=== PATIENT | male | born 1965 | race Caucasian/White ===

== ENCOUNTER 2016-10-28 10:45 | Day surgery (SDC) | payer OTHER ==
[~2016-10-28] VITALS: Ht 175.3 cm; Wt 105.0 kg
--- NOTE | 2016-10-28 07:25 | PCM.HPANE ---
Patient Data Surgeon Admitting Provider: Attending Provider:Sachin Strickland MD Primary Care Physician:Mitchel John PA-C Other Provider:[facility] Reason for Visit Rectal Bleed Ht/WT & BMI Body Mass Index Allergies Coded Allergies: Iodinated Contrast Media - Oral and (Verified Allergy, Severe, Hives, 10/27) ALSO HAD TONGUE SWELLING Diabetes History Hx Diabetes?: No Medications Hypertension Medication: No Home Meds Incl Beta Katelyn: No Reported Medications Omeprazole 20 Mg Capsule.dr20 Mg PO prn Ref 0 10/28/16 Loratadine (Claritin)10 Mg [id number] Mg PO DAILY Ref 0 10/27/16 Discontinued Reported Medications Ranitidine 300 Mg [id number] Mg PO DAILY Ref 0 10/27/16 History Hx of Heart Problems?: No Hx of Respiratory Problem?: No Stop/Bang Treated for Sleep Apnea?: Yes Do You Have a CPAP Machine?: Yes Risk Assessment Category Category 1A: Patient has history of documented sleep apnea, and HAS NOT received any narcotic, sedative or anesthesia administration during this stay. Category 1B: Patient has history of documented sleep apnea, and HAS received any narcotic , sedative or anesthesia administration during this stay Category 2: Patient has SUSPECTED Obstructive Sleep Apnea, and HAS received any narcotic , sedative or anesthesia administration during this stay. Category 3: Patient has SUSPECTED Obstructive Sleep Apnea and HAS NOT received narcotic, sedative or anesthesia administration during this stay. Category 4: Outpatient in Procedural Areas with known sleep apnea or who screen positive for High Risk via the STOP/BANG questionnaire. Exam Exam General Appearance: Alert, Oriented X3, Cooperative, No Acute Distress HEENT/AIRWAY: MP 2 Lungs: Normal Air Movement Heart: Exam Unremarkable Plan Impression Patient chart reviewed, patient interviewed and anesthestic plan with risks, benefits, and alternatives discussed, and informed consent obtained. ASA Physical Status: ASA2 Mod Systemic Disease Anesthetic Plan: MAC Bene/Risks/Altern/Consents: Yes HP Complete Prior to Induction: Yes Thierry Jiménez MD Oct 28, 2016 07:25
[~2016-10-28 10:45] MED LIST: LORA10CA PO; Lactated Ringer's 1,000 ML IV ONE; RANI300T4 PO
[2016-10-28] MEDS ORDERED: fentaNYL-PF 50 mCg/mL 2 mL Inj ONE (10:46)
[2016-10-28] MEDS ORDERED: Propofol 10,000 mCg/mL 20 mL Inj ONE (10:46)
[2016-10-28] MEDS ORDERED: OMEP20CA11 PO (11:18)
[2016-10-28 11:19] VITALS: BP 136/79; PULSE 58; RESP 14; O2SAT 98
[2016-10-28 12:10] VITALS: BP 102/64; PULSE 66; RESP 14; O2SAT 95
--- NOTE | 2016-10-28 12:13 | PCM.ANEP2 ---
Post Anesthesia Evaluation ASA/CMS Post Anesthesia VS in Patient's Normal Range?: Yes Resp Stable; Airway Patent?: Yes CV Function & Hydration Stable: Yes Mental Status Recovered?: Yes Pain control Satisfactory?: Yes N/V Control Satisfactory?: Yes Thierry Jiménez MD Oct 28, 2016 12:13
--- NOTE | 2016-10-28 12:13 | PCM.ANEP1 ---
Post Anesthesia Phase 1 PACU Phase 1 Assessment Vital Signs see anesthesia record Vital Signs Date Time Temp Pulse Resp B/P Pulse Ox O2 Delivery O2 Flow Rate FiO2 10/28/16 12:10 66 14 102/64 95 Room Air 10/28/16 11:19 58 14 136/79 98 Room Air Anesthetic Administered: MAC Level of Alertness: Awake, talking ERAZO's with Equal Strength: Yes Pain: No Nausea or Vomiting: No Oxygen Delivery: Room Air Lungs: Normal Air Movement Dermatome Level: Full Sensation Thierry Jiménez MD Oct 28, 2016 12:13
[2016-10-28 12:20] VITALS: BP 108/68; PULSE 67; RESP 16; O2SAT 96
[2016-10-28 12:27] VITALS: BP 114/71; PULSE 62; RESP 16; O2SAT 95
--- NOTE | 2016-10-28 13:46 | ENDO ---
[address] [address] ENDOSCOPY PROCEDURE PATIENT: MALCOLM LAYTON : 1965 MR#: [id number] ADMIT: 10/28/2016 JOB ID: [id number] DATE: 10/28/2016 OPERATION: 1. Esophagogastroduodenoscopy with biopsy. 2. Colonoscopy with biopsy. PREOPERATIVE DIAGNOSES: 1. Left upper quadrant pain. 2. Rectal bleeding. POSTOPERATIVE DIAGNOSES: 1. Mild nonerosive gastritis. 2. Small internal hemorrhoids. 3. Mild sigmoid diverticulosis. 4. Two colon polyps seen in sigmoid measuring 3 mm in size, removed by cold biopsy forceps, status post hemoclip x2 placed in one biopsy site. ANESTHESIA: Monitored anesthesia care. COMPLICATIONS: None. BLOOD LOSS: Minimal. DESCRIPTION OF PROCEDURE: After risks and benefits were explained to the patient, informed consent was obtained. After anesthesia administered, upper endoscope was inserted in mouth intubating to the esophagus, stomach, second portion of duodenum, and the mucosa carefully examined. After the procedure was done, the scope was withdrawn and procedure terminated. Colonoscope was then inserted from rectum to cecum and mucosa carefully examined. Prep of the patient was excellent. After the procedure was done, the scope withdrawn and procedure terminated. FINDINGS: Upon inspection of the esophagus, esophagus was normal without masses, ulcers, or lesions. Z-line located 40 cm from the incisors. Upon entering the stomach, there was mild nonerosive gastritis seen in the stomach. No masses, ulcers, lesions were seen. Retroflexion normal. Duodenal bulb, first, second portion were normal. Biopsies taken of antrum, body of stomach. Upon inspection of the anus, no masses, hemorrhoids, ulcers, or fissures were seen throughout the entire examination. There was mild sigmoid diverticulosis. There were two polyps measuring 3 mm in size, removed in the sigmoid colon by cold biopsy forceps. There was a small amount of bleeding that was seen after one polyp that was removed, and two hemoclips were placed. Retroflexion showed small internal hemorrhoids. IMPRESSION: 1. Mild nonerosive gastritis. 2. Small internal hemorrhoids. 3. Two polyps in the sigmoid colon measuring 3 mm in size, status post biopsy and two hemoclips placed at one polypectomy site. 4. Mild sigmoid diverticulosis. RECOMMENDATIONS: 1. High-fiber diet. 2. Await pathology results. If tubular adenoma, then repeat colonoscopy in five years.
--- NOTE | 2016-10-30 08:53 | PATH ---
SURGICAL PATHOLOGY Attending Physician:Sachin Strickland MD CASE STATUS: Signed Out PATIENT NAME: MALCOLM LAYTON PID: [id number] : 1965 DATE COLLECTED:10/28/2016 20:43 SPECIMEN: 1: Stomach, Antrum, Biopsy 2: Gastric, Biopsy 3: Colon, Biopsy CLINICAL HISTORY: RECTAL BLEEDING, ABDOMINAL PAIN 1). ANTRUM BIOPSY 2). GASTRIC BODY BIOPSY 3). SIGMOID COLON POLYPS X2 FINAL DIAGNOSIS: 1. Gastric Antrum, Biopsy: Normal gastric antrum. Negative for Helicobacter organisms. Negative for intestinal metaplasia. No evidence of malignancy or dysplasia. 2. Gastric Body, Biopsy: Normal gastric corpus. Negative for Helicobacter organisms. Negative for intestinal metaplasia. No evidence of malignancy or dysplasia. 3. Sigmoid Colon Polyps: Hyperplastic polyps (2). ICD10 D12.6 GROSS DESCRIPTION: The specimen is received in three formalin filled containers labeled with the patient's name. 1). The specimen is sublabeled "antrum" and consists of a 0.4 x 0.3 x 0.2 CM portion of tissue which is entirely submitted in cassette 1A. 2). The specimen is sublabeled "gastric body" and consists of 3 portions of tissue which aggregate to 0.4 x 0.3 x 0.2 CM. The specimen is entirely submitted in cassette 2A. 3). The specimen is sublabeled "sigmoid colon polyps" and consists of 4 portions of tissue which aggregate to 0.4 x 0.4 x 0.3 CM. The specimen is entirely submitted in cassette 3A. 10/28/2016 [facility] ICD-9 CODES: CPT CODES: 1: 33469 2: 13882 3: 36255 Electronically Signed Out Davin Davis MD [facility] Pathology [facility] [place] [address] Technical component performed at [facility], [facility] [address], [address]
== END 2016-10-28 23:59 | disposition home or self-care (01) ==
LOC: END 10:45
PROVIDERS: ATTEND Internal Medicine Gastroenterology
DX: D12.5 Benign neoplasm of sigmoid colon (principal); K57.30 Diverticulosis of large intestine without perforation or abscess without bleeding; K62.5 Hemorrhage of anus and rectum; K64.8 Other hemorrhoids; K29.70 Gastritis, unspecified, without bleeding; R10.12 Left upper quadrant pain; G47.33 Obstructive sleep apnea (adult) (pediatric); K21.9 Gastro-esophageal reflux disease without esophagitis; G47.30 Sleep apnea, unspecified; Z87.891 Personal history of nicotine dependence; Z72.89 Other problems related to lifestyle
CPT/HCPCS: 43239; 45380; 88305; J2250; J3010; J7120